=== PATIENT | female | born 1995 | race Caucasian/White ===

== ENCOUNTER → 2025-09-07 | Outpatient (CLI) | payer MEDICAID, SELFPAY ==
[2025-09-07 11:05] LABS: Hematocrit 44.2 % (37-47); Hemoglobin 15.0 g/dL (12.0-15.0); Immature Granulocytes Count 0.020 X10^3/uL (0.0-0.0); Mean Corp Hgb Conc 33.9 g/dL (32-36); Mean Corpuscular Volume 92.9 fL (81-99); Mean Platelet Vol. 11.1 fl (6.2-12.0); NRBC Flagged by Analyzer 0 % (0-5); Platelet Count 281 K/mm3 (150-450); RBC Distribution Width CV 12.8 % (11.6-14.6); RBC Distribution Width SD 43.9 fl (35.1-43.9); Red Blood Count 4.76 M/mm3 (4.2-5.4); White Blood Count 7.0 K/mm3 (4.4-11.0)
[2025-09-07 11:30] LABS: AST(SGOT) 67 U/L (<=31); Alanine Aminotransfer ALT/SGPT 75 U/L (<=34); Albumin, Serum 4.1 g/dL (3.5-5.0); Alkaline Phosphatase 121 U/L (35-104); Anion Gap 10 (5-15); BUN 9 mg/dL (4-19); BUN/Creat Ratio 15.1 RATIO (10-20); CRP 7.47 mg/L (0.0-3.0); Calcium,Total 9.1 mg/dL (7.6-11.0); Carbon Dioxide 21.2 mmol/L (21.0-32.0); Chloride 107 mmol/L (98-108); Globulin 3.0 g/dL (2.2-4.2); Glucose 92 mg/dL (70-99); Potassium 4.2 mmol/L (3.3-5.1)
[2025-09-08 18:08] LABS: Immunoglobulin A 228 mg/dL (87-352)
== END | disposition home or self-care (01) ==
LOC: LAB 09:57
PROVIDERS: PCP Nurse Practitioner Adult Health; Referring Provider Student in an Organized Health Care Education/Training Program; Visit Provider Student in an Organized Health Care Education/Training Program
DX: R11.0 Nausea (principal); R19.7 Diarrhea, unspecified
CPT/HCPCS: 36415; 80053; 82784; 83516; 85025; 86140; 86255

== ENCOUNTER → 2025-10-02 | Outpatient (CLI) | payer MEDICAID, SELFPAY ==
--- NOTE | 2025-10-02 09:35 | US_ITS ---
PROCEDURE: ABD LIMITED W/ ELASTOGRAPHY 10/02/2025 REASON FOR EXAM: FATTY LIVER TECHNIQUE: Procedure Code: [id number] Modality: US Procedure: ABD LIMITED W/ ELASTOGRAPHY FINDINGS: LIVER: Size: Unremarkable Length: 15.2 cm Echotexture: Diffusely echogenic suggesting fatty infiltration Contour: Normal Lesions: None identified Elastography: EQI Med: 1.38 kPa EQI Med Harrison: 5.7 m/s IQR/Med: 7.1 %* GALLBLADDER: Normal COMMON BILE DUCT: Normal PANCREAS: Normal KIDNEYS: The right kidney measures 10.8 x 4.8 x 4.7 cm. Renal parenchymal thicknesses and echotextures are preserved. No hydronephrosis. SPLEEN: Normal . AORTA: Visualized abdominal aorta is of normal size. IVC: Visualized inferior vena cava is unremarkable. PERITONEAL FINDINGS: No ascites identified. US/ABD Limited w/ Elastography IMPRESSION: NO TO MILD HEPATIC FIBROSIS. Metavir score F0-F1. FATTY LIVER. NO CHOLELITHIASIS OR BILIARY DILATION. Reading Location: [id number]
== END | disposition home or self-care (01) ==
LOC: US 09:34
PROVIDERS: PCP Nurse Practitioner Adult Health; Referring Provider Student in an Organized Health Care Education/Training Program; Visit Provider Student in an Organized Health Care Education/Training Program
DX: K76.0 Fatty (change of) liver, not elsewhere classified (principal); R79.89 Other specified abnormal findings of blood chemistry
CPT/HCPCS: 76705; 76981